=== PATIENT | male | born 1960 | race Two or more races ===

== ENCOUNTER 2022-10-04 23:07 | Emergency (ER) | payer BC | END 2022-10-05 00:01 | disposition home or self-care (01) | LOC: MW.ED 23:07 | DX: J30.9 Allergic rhinitis, unspecified (principal); I10 Essential (primary) hypertension; Z79.899 Other long term (current) drug therapy | CPT/HCPCS: 99283 ==

== ENCOUNTER 2023-07-17 19:29 | Emergency (ER) | payer BC ==
[2023-07-17] MEDS: Albuterol/Ipratropium 3.0-0.5 MG/3 ML Neb Soln NEB ONE (20:35)
[2023-07-17] MEDS: Albuterol 0.083% 2.5 MG/3 ML Neb Soln NEB ONE (22:18)
[2023-07-17] MEDS: Dexamethasone 4 MG Tab PO ONE (23:17)
[2023-07-17] MEDS: Albuterol 8 GM Inhaler INH ONE (23:18)
== END 2023-07-17 23:30 | disposition home or self-care (01) ==
LOC: MW.ED 19:29
DX: J40 Bronchitis, not specified as acute or chronic (principal); I10 Essential (primary) hypertension; Z75.8 Other problems related to medical facilities and other health care; Z79.899 Other long term (current) drug therapy
CPT/HCPCS: 71046; 71046-26; 87651-QW; 99283; 99284; A9270-GY; J7620-GY; J8540; U0002

== ENCOUNTER 2025-01-25 09:38 | Emergency (ER) | payer BC | END 2025-01-25 11:32 | disposition home or self-care (01) | LOC: MW.ED 09:38 | DX: S83.91XA Sprain of unspecified site of right knee, initial encounter (principal); J02.9 Acute pharyngitis, unspecified; I10 Essential (primary) hypertension; Z79.899 Other long term (current) drug therapy; Z75.3 Unavailability and inaccessibility of health-care facilities; W18.30XA Fall on same level, unspecified, initial encounter | CPT/HCPCS: 73562-26-RT; 73562-RT; 99283 ==